=== PATIENT | female | born 1940 | race Caucasian/White ===

== ENCOUNTER → 2016-08-31 | Outpatient (CLI) | payer MEDICARE, MEDICAID ==
[2016-08-31 16:10] LABS: CALCIUM 8.7 MG/DL (8.5-10.1); CREATININE SERUM 1.21 MG/DL (0.60-1.30)
== END ==
LOC: HH 15:42
PROVIDERS: ATTEND Internal Medicine
DX: I12.9 Hypertensive chronic kidney disease with stage 1 through stage 4 chronic kidney disease, or unspecified chronic kidney disease (principal); N18.9 Chronic kidney disease, unspecified
CPT/HCPCS: 80048

== ENCOUNTER → 2016-09-27 | Outpatient (CLI) | payer MEDICARE, MEDICAID ==
[2016-09-27 15:48] LABS: CALCIUM 9.1 MG/DL (8.5-10.1); CREATININE SERUM 1.3 MG/DL (0.60-1.30); POTASSIUM 4.5 MMOL/L (3.6-5.0)
== END ==
LOC: HH 15:24
PROVIDERS: ATTEND Internal Medicine
DX: I12.9 Hypertensive chronic kidney disease with stage 1 through stage 4 chronic kidney disease, or unspecified chronic kidney disease (principal); N18.9 Chronic kidney disease, unspecified
CPT/HCPCS: 80048

== ENCOUNTER → 2016-10-27 | Outpatient (CLI) | payer MEDICARE, MEDICAID ==
--- OUTSIDE RECORDS SUMMARY | 2016-10-27 16:41 | XMS REPORT | Continuity of Care Document ---
Author Author [facility] Organization [facility] Address Unknown Phone Unavailable Allergies Medications Problems Date Dx Coded Attending Type Code Diagnosis Diagnosed By 08/03/2014 MARTHA MARQUEZ, DONAVAN Ford Ot 793.80 09/16/2014 Ot V76.12 09/16/2014 Ot 826.0 09/16/2014 Ot E000.8 09/16/2014 Ot E849.0 09/16/2014 Ot E928.9 09/16/2014 Ot V76.12 09/16/2014 Ot 782.3 09/16/2014 Ot 786.05 09/16/2014 Ot 715.36 09/16/2014 MARTHA MARQUEZ, DONAVAN Ford Ot V76.12 09/16/2014 MARTHA MARQUEZ, DONAVAN Ford Ot 793.80 10/06/2014 DONAVAN THOMAS MD Ot 793.80 10/13/2014 DONAVAN THOMAS MD Ot 793.80 02/04/2015 MARTHA MARQUEZ, DONAVAN Ford Ot 793.80 10/07/2015 MARTHA MARQUEZ, DONAVAN Ford Ot E11.9 10/25/2015 DONAVAN THOMAS MD Ot E11.9 11/04/2015 MARTHA MARQUEZ, DONAVAN Ford Ot E11.9 03/21/2016 MARTHA MARQUEZ, DONAVAN Ford Ot E11.9 TYPE 2 DIABETES MELLITUS WITHOUT COMPLIC 03/21/2016 MARTHA MARQUEZ, DONAVAN Ford Ot R60.9 EDEMA, UNSPECIFIED 03/21/2016 MARTHA MARQUEZ, DONAVAN Ford Ot Z79.899 OTHER SHELTER (CURRENT) DRUG THERAPY 04/11/2016 MARTHA MARQUEZ, DONAVAN Ford Ot R32 UNSPECIFIED URINARY INCONTINENCE 04/11/2016 DONAVAN THOMAS MD Ot E11.9 TYPE 2 DIABETES MELLITUS WITHOUT COMPLIC 04/11/2016 DONAVAN THOMAS MD Ot R60.9 EDEMA, UNSPECIFIED 04/11/2016 DONAVAN THOMAS MD Ot Z79.899 OTHER POULTRY TENDER (CURRENT) DRUG THERAPY 04/19/2016 DONAVAN THOMAS MD Ot E11.9 TYPE 2 DIABETES MELLITUS WITHOUT COMPLIC 04/19/2016 MARTHA MARQUEZ, DONAVAN Ford Ot Z79.899 OTHER POULTRY TENDER (CURRENT) DRUG THERAPY 04/19/2016 MARTHA MARQUEZ, DONAVAN Ford Ot E11.9 TYPE 2 DIABETES MELLITUS WITHOUT COMPLIC 04/19/2016 MARTHA MARQUEZ, DONAVAN Ford Ot R60.9 EDEMA, UNSPECIFIED 04/19/2016 MARTHA MARQUEZ, DONAVAN Ford Ot Z79.899 OTHER POULTRY TENDER (CURRENT) DRUG THERAPY 05/05/2016 MARTHA MARQUEZ, DONAVAN Ford Ot R32 UNSPECIFIED URINARY INCONTINENCE 05/11/2016 MARTHA MARQUEZ, DONAVAN Ford Ot R32 UNSPECIFIED URINARY INCONTINENCE 05/12/2016 MARTHA MARQUEZ, DONAVAN Ford Ot E11.9 TYPE 2 DIABETES MELLITUS WITHOUT COMPLIC 05/12/2016 MARTHA MARQUEZ, DONAVAN Ford Ot Z79.899 OTHER POULTRY TENDER (CURRENT) DRUG THERAPY 05/17/2016 MARTHA MARQUEZ, DONAVAN Ford Ot E11.9 TYPE 2 DIABETES MELLITUS WITHOUT COMPLIC 05/17/2016 MARTHA MARQUEZ, DONAVAN Ford Ot Z79.899 OTHER SHELTER (CURRENT) DRUG THERAPY 05/23/2016 DONAVAN THOMAS MD Ot N39.0 URINARY TRACT INFECTION, SITE NOT SPECIF 05/27/2016 DONAVAN THOMAS MD Ot E11.9 TYPE 2 DIABETES MELLITUS WITHOUT COMPLIC 05/27/2016 DONAVAN THOMAS MD Ot I10 ESSENTIAL (PRIMARY) HYPERTENSION 06/02/2016 DONAVAN THOMAS MD Ot N39.0 URINARY TRACT INFECTION, SITE NOT SPECIF 06/02/2016 DONAVAN THOMAS MD Ot E11.9 TYPE 2 DIABETES MELLITUS WITHOUT COMPLIC 06/02/2016 DONAVAN THOMAS MD Ot I10 ESSENTIAL (PRIMARY) HYPERTENSION 06/09/2016 DONAVAN THOMAS MD Ot E11.9 TYPE 2 DIABETES MELLITUS WITHOUT COMPLIC 06/09/2016 DONAVAN THOMAS MD Ot I10 ESSENTIAL (PRIMARY) HYPERTENSION 06/21/2016 DONAVAN THOMAS MD Ot E11.9 TYPE 2 DIABETES MELLITUS WITHOUT COMPLIC 06/21/2016 DONAVAN THOMAS MD Ot I10 ESSENTIAL (PRIMARY) HYPERTENSION 06/21/2016 DONAVAN THOMAS MD Ot N39.0 URINARY TRACT INFECTION, SITE NOT SPECIF 06/27/2016 DONAVAN THOMAS MD Ot E11.9 TYPE 2 DIABETES MELLITUS WITHOUT COMPLIC 06/27/2016 DONAVAN THOMAS MD Ot I10 ESSENTIAL (PRIMARY) HYPERTENSION 06/30/2016 DONAVAN THOMAS MD, Ot E11.29 TYPE 2 DIABETES MELLITUS W OT DIABETIC 07/05/2016 DONAVAN THOMAS MD Ot N39.0 URINARY TRACT INFECTION, SITE NOT SPECIF 07/05/2016 DONAVAN THOMAS MD, Ot E11.9 TYPE 2 DIABETES MELLITUS WITHOUT COMPLIC 07/05/2016 DONAVAN THOMAS MD, Ot I10 ESSENTIAL (PRIMARY) HYPERTENSION 07/10/2016 DONAVAN THOMAS MD, Ot E11.9 TYPE 2 DIABETES MELLITUS WITHOUT COMPLIC 07/10/2016 DONAVAN THOMAS MD, Ot I10 ESSENTIAL (PRIMARY) HYPERTENSION 07/19/2016 DONAVAN THOMAS MD, Ot E11.29 TYPE 2 DIABETES MELLITUS W OT DIABETIC 07/27/2016 DONAVAN THOMAS MD, Ot E11.29 TYPE 2 DIABETES MELLITUS W [facility] DIABETIC 07/31/2016 Ot 782.3 EDEMA 07/31/2016 Ot 786.05 SHORTNESS OF BREATH 07/31/2016 Ot 715.36 LOC OSTEOARTH NOS-L/LEG 07/31/2016 DONAVAN THOMAS MD Ot V76.12 OT SCREEN MAMMO-MALIGN NEOPLASM OF MARGARITA 07/31/2016 DONAVAN THOMAS MD Ot 793.80 UNSPEC ABNORMAL MAMMOGRAM 07/31/2016 DONAVAN THOMAS MD Ot 793.80 UNSPEC ABNORMAL MAMMOGRAM 07/31/2016 DONAVAN THOMAS MD, Ot E11.9 TYPE 2 DIABETES MELLITUS WITHOUT COMPLIC 07/31/2016 DONAVAN THOMAS MD, Ot E11.9 TYPE 2 DIABETES MELLITUS WITHOUT COMPLIC 07/31/2016 DONAVAN THOMAS MD Ot R60.9 EDEMA, UNSPECIFIED 07/31/2016 DONAVAN THOMAS MD, Ot Z79.899 OTHER SHELTER (CURRENT) DRUG THERAPY 07/31/2016 DONAVAN THOMAS MD, Ot R32 UNSPECIFIED URINARY INCONTINENCE 07/31/2016 DONAVAN THOMAS MD, Ot E11.9 TYPE 2 DIABETES MELLITUS WITHOUT COMPLIC 07/31/2016 DONAVAN THOMAS MD, Ot Z79.899 OTHER POULTRY TENDER (CURRENT) DRUG THERAPY 07/31/2016 DONAVAN THOMAS MD, Ot N39.0 URINARY TRACT INFECTION, SITE NOT SPECIF 07/31/2016 DONAVAN THOMAS MD, Ot E11.9 TYPE 2 DIABETES MELLITUS WITHOUT COMPLIC 07/31/2016 THOMAS MD, DONAVAN D Ot I10 ESSENTIAL (PRIMARY) HYPERTENSION 07/31/2016 MARTHA MARQUEZ, DONAVAN Ford Ot E11.9 TYPE 2 DIABETES MELLITUS WITHOUT COMPLIC 07/31/2016 MARTHA MARQUEZ, DONAVAN Ford Ot I10 ESSENTIAL (PRIMARY) HYPERTENSION 07/31/2016 MARTHA MARQUEZ, DONAVAN Ford Ot E11.29 TYPE 2 DIABETES MELLITUS W [facility] DIABETIC 08/01/2016 MARTHA MARQUEZ, DONAVAN Ford Ot E11.29 TYPE 2 DIABETES MELLITUS W [facility] DIABETIC 08/24/2016 MARTHA MARQUEZ, DONAVAN Ford Ot E11.29 TYPE 2 DIABETES MELLITUS W [facility] DIABETIC 08/31/2016 MARTHA MARQUEZ, DONAVAN Ford Ot E11.29 TYPE 2 DIABETES MELLITUS W [facility] DIABETIC 08/31/2016 MARTHA MARQUEZ, DONAVAN Ford Ot I12.9 HYPERTENSIVE CHRONIC KIDNEY DISEASE W ST 08/31/2016 MARTHA MARQUEZ, DONAVAN Ford Ot N18.9 CHRONIC KIDNEY DISEASE, UNSPECIFIED 09/21/2016 MARTHA MARQUEZ, DONAVAN Ford Ot I12.9 HYPERTENSIVE CHRONIC KIDNEY DISEASE W ST 09/21/2016 MARTHA MARQUEZ, DONAVAN Ford Ot N18.9 CHRONIC KIDNEY DISEASE, UNSPECIFIED 09/26/2016 MARTHA MARQUEZ, DONAVAN Ford Ot I12.9 HYPERTENSIVE CHRONIC KIDNEY DISEASE W ST 09/26/2016 MARTHA MARQUEZ, DONAVAN Ford Ot N18.9 CHRONIC KIDNEY DISEASE, UNSPECIFIED 09/29/2016 MARTHA MARQUEZ, DONAVAN Ford Ot I12.9 HYPERTENSIVE CHRONIC KIDNEY DISEASE W ST 09/29/2016 MARTHA MARQUEZ, DONAVAN Ford Ot N18.9 CHRONIC KIDNEY DISEASE, UNSPECIFIED Procedures Results Test Result Range Complete urinalysis with reflex to culture - 04/10/16 13:30 Urine color determination YELLOW NRG Urine clarity determination CLEAR NRG Urine pH measurement by test strip 5 5- 9 Specific gravity of urine by test strip 1.015 1.016-1.022 Urine protein assay by test strip, semi-quantitative 3+ NEGATIVE Urine glucose detection by automated test strip NEGATIVE NEGATIVE Erythrocytes detection in urine sediment by light microscopy 4+ NEGATIVE Urine ketones detection by automated test strip NEGATIVE NEGATIVE Urine nitrite detection by test strip NEGATIVE NEGATIVE Urine total bilirubin detection by test strip NEGATIVE NEGATIVE Urine urobilinogen measurement by automated test strip (mass/volume) NORMAL NORMAL Urine leukocyte esterase detection by dipstick 3+ NEGATIVE Automated urine sediment erythrocyte count by microscopy (number/high power field) [HPF] NRG Automated urine sediment leukocyte count by microscopy (number/high power field ) [HPF] NRG Bacteria detection in urine sediment by light microscopy MODERATE NRG Squamous epithelial cells detection in urine sediment by light microscopy 2-5 NRG Crystals detection in urine sediment by light microscopy NONE NRG Casts detection in urine sediment by light microscopy NONE NRG Mucus detection in urine sediment by light microscopy NEGATIVE NRG Complete urinalysis with reflex to culture YES NRG Bacterial urine culture - 04/10/16 13:30 Bacterial urine culture [id number] NRG COLONY COUNT >100,000/ML NRG FTX;REPORTABLE SENSITIVITY REPORTED 04/11 16:45 NRG URINE CULTURE RESULTS <10,000/ML NRG Bacterial susceptibility panel - 04/10/16 13:30 Gentamicin susceptibility test by minimum inhibitory concentration <= NRG Trimethoprim/sulfamethoxazole susceptibility test by minimum inhibitoryconcentration <= NRG Ampicillin susceptibility test by minimum inhibitory concentration >= NRG Tobramycin susceptibility test by minimum inhibitory concentration <= NRG Cefazolin susceptibility test by minimum inhibitory concentration <= NRG Ceftriaxone susceptibility test by minimum inhibitory concentration <= NRG Ampicillin/sulbactam susceptibility test by minimum inhibitory concentration >= NRG Piperacillin/tazobactam susceptibility test by minimum inhibitory concentration <= NRG Ciprofloxacin susceptibility test by minimum inhibitory concentration <= NRG Meropenem susceptibility test by minimum inhibitory concentration <= NRG Nitrofurantoin susceptibility test by minimum inhibitory concentration <= NRG Aztreonam susceptibility test by minimum inhibitory concentration <= NRG Extended spectrum beta lactamase (ESBL) producing bacteria susceptibility test by minimum inhibitory concentration - NR Whole blood basic metabolic panel - 04/18/16 12:15 Serum or plasma sodium measurement (moles/volume) 137 mmol/ L 135-145 Serum or plasma potassium measurement (moles/volume) 4.2 mmol/L 3.6-5.0 Serum or plasma chloride measurement (moles/volume) 100 mmol /L 98-107 Carbon dioxide 27 mmol/L 21-32 Serum or plasma anion gap determination (moles/volume) 10 mmol/L 5-14 Serum or plasma urea nitrogen measurement (mass/volume) 30 mg/dL 7-18 Serum or plasma creatinine measurement (mass/volume) 1.19 mg /dL 0.60-1.30 Serum or plasma urea nitrogen/creatinine mass ratio 25 NRG Serum or plasma creatinine measurement with calculation of estimated glomerular filtration rate 44 NRG Serum or plasma glucose measurement (mass/volume) 274 mg/dL 70-105 Serum or plasma calcium measurement (mass/volume) 9.1 mg/dL 8.5-10.1 Complete urinalysis with reflex to culture - 05/16/16 16:15 Urine color determination YELLOW NRG Urine clarity determination VERY CLOUDY NRG Urine pH measurement by test strip 7 5- 9 Specific gravity of urine by test strip 1.010 1.016-1.022 Urine protein assay by test strip, semi-quantitative 1+ NEGATIVE Urine glucose detection by automated test strip NEGATIVE NEGATIVE Erythrocytes detection in urine sediment by light microscopy 4+ NEGATIVE Urine ketones detection by automated test strip NEGATIVE NEGATIVE Urine nitrite detection by test strip POSITIVE NEGATIVE Urine total bilirubin detection by test strip NEGATIVE NEGATIVE Urine urobilinogen measurement by automated test strip (mass/volume) NORMAL NORMAL Urine leukocyte esterase detection by dipstick 3+ NEGATIVE Automated urine sediment erythrocyte count by microscopy (number/high power field) [HPF] NRG Automated urine sediment leukocyte count by microscopy (number/high power field ) [HPF] NRG Bacteria detection in urine sediment by light microscopy FEW NRG Squamous epithelial cells detection in urine sediment by light microscopy NONE NRG Crystals detection in urine sediment by light microscopy NONE NRG Casts detection in urine sediment by light microscopy NONE NRG Mucus detection in urine sediment by light microscopy NEGATIVE NRG Complete urinalysis with reflex to culture YES NRG Bacterial urine culture - 05/16/16 16:15 Bacterial urine culture [id number] NRG COLONY COUNT 10,000/ML - 100,000/ML NRG FTX;REPORTABLE SENSITIVITY [place]PORTED [place] 0819, 16 NR URINE CULTURE RESULTS PLUS NR Bacterial susceptibility panel - 05/16/16 16:15 Gentamicin susceptibility test by minimum inhibitory concentration <= NRG Trimethoprim/sulfamethoxazole susceptibility test by minimum inhibitoryconcentration <= NRG Ampicillin susceptibility test by minimum inhibitory concentration >= NRG Tobramycin susceptibility test by minimum inhibitory concentration <= NRG Cefazolin susceptibility test by minimum inhibitory concentration <= NRG Ceftriaxone susceptibility test by minimum inhibitory concentration <= NRG Ampicillin/sulbactam susceptibility test by minimum inhibitory concentration >= NRG Piperacillin/tazobactam susceptibility test by minimum inhibitory concentration <= NRG Ciprofloxacin susceptibility test by minimum inhibitory concentration <= NRG Meropenem susceptibility test by minimum inhibitory concentration <= NRG Nitrofurantoin susceptibility test by minimum inhibitory concentration 64 NRG Aztreonam susceptibility test by minimum inhibitory concentration <= NRG Extended spectrum beta lactamase (ESBL) producing bacteria susceptibility test by minimum inhibitory concentration NEG NRG Bacterial susceptibility panel - 05/16/16 16:15 Gentamicin susceptibility test by minimum inhibitory concentration <= NRG Trimethoprim/sulfamethoxazole susceptibility test by minimum inhibitoryconcentration <= NRG Tobramycin susceptibility test by minimum inhibitory concentration <= NRG Cefazolin susceptibility test by minimum inhibitory concentration >= NRG Piperacillin/tazobactam susceptibility test by minimum inhibitory concentration <= NRG Ciprofloxacin susceptibility test by minimum inhibitory concentration <= NRG Meropenem susceptibility test by minimum inhibitory concentration <= NRG Nitrofurantoin susceptibility test by minimum inhibitory concentration 128 NRG Aztreonam susceptibility test by minimum inhibitory concentration <= NRG Cefepime susceptibility test by minimum inhibitory concentration <= NRG Bacterial susceptibility panel - 05/16/16 16:15 Gentamicin susceptibility test by minimum inhibitory concentration S NRG Vancomycin susceptibility test by minimum inhibitory concentration 1 NRG Levofloxacin susceptibility test by minimum inhibitory concentration 1 NRG Tetracycline susceptibility test by minimum inhibitory concentration <= NRG Ampicillin susceptibility test by minimum inhibitory concentration <= NRG Nitrofurantoin susceptibility test by minimum inhibitory concentration <= NRG Linezolid susceptibility test by minimum inhibitory concentration 2 NRG Complete blood count (CBC) with automated white blood cell (WBC) differential - 05/23/16 13:30 Blood leukocytes automated count (number/volume) 6.5 10*3/ uL 4.3-11.0 Blood erythrocytes automated count (number/volume) 4.16 10*6 /uL 4.35-5.85 Venous blood hemoglobin measurement (mass/volume) 12.5 g/dL 11.5-16.0 Blood hematocrit (volume fraction) 38 % 35-52 Automated erythrocyte mean corpuscular volume 91 [foz_us] 80-99 Automated erythrocyte mean corpuscular hemoglobin (mass per erythrocyte) 30 pg 25-34 Automated erythrocyte mean corpuscular hemoglobin concentration measurement ( mass/volume) 33 g/dL 32-36 Automated erythrocyte distribution width ratio 12.8 % 10.0-14.5 Automated blood platelet count (count/volume) 166 10*3/uL 130-400 Automated blood platelet mean volume measurement 11.7 [foz_ us] 7.4-10.4 Automated blood neutrophils/100 leukocytes 55 % 42-75 Automated blood lymphocytes/100 leukocytes 28 % 12-44 Blood monocytes/100 leukocytes 10 % 0-12 Automated blood eosinophils/100 leukocytes 6 % 0-10 Automated blood basophils/100 leukocytes 1 % 0-10 Blood neutrophils automated count (number/volume) 3.6 10*3 1.8-7.8 Blood lymphocytes automated count (number/volume) 1.8 10*3 1.0-4.0 Blood monocytes automated count (number/volume) 0.7 10*3 0.0-1.0 Automated eosinophil count 0.4 10*3/uL 0.0-0.3 Automated blood basophil count (count/volume) 0.1 10*3/uL 0.0-0.1 Whole blood basic metabolic panel - 05/23/16 13:30 Serum or plasma sodium measurement (moles/volume) 128 mmol/ L 135-145 Serum or plasma potassium measurement (moles/volume) 4.7 mmol/L 3.6-5.0 Serum or plasma chloride measurement (moles/volume) 97 mmol/ L 98-107 Carbon dioxide 21 mmol/L 21-32 Serum or plasma anion gap determination (moles/volume) 10 mmol/L 5-14 Serum or plasma urea nitrogen measurement (mass/volume) 28 mg/dL 7-18 Serum or plasma creatinine measurement (mass/volume) 2.06 mg /dL 0.60-1.30 Serum or plasma urea nitrogen/creatinine mass ratio 14 NRG Serum or plasma creatinine measurement with calculation of estimated glomerular filtration rate 24 NRG Serum or plasma glucose measurement (mass/volume) 240 mg/dL 70-105 Serum or plasma calcium measurement (mass/volume) 8.7 mg/dL 8.5-10.1 Whole blood basic metabolic panel - 05/31/16 16:00 Serum or plasma sodium measurement (moles/volume) 136 mmol/ L 135-145 Serum or plasma potassium measurement (moles/volume) 4.7 mmol/L 3.6-5.0 Serum or plasma chloride measurement (moles/volume) 102 mmol /L 98-107 Carbon dioxide 22 mmol/L 21-32 Serum or plasma anion gap determination (moles/volume) 12 mmol/L 5-14 Serum or plasma urea nitrogen measurement (mass/volume) 23 mg/dL 7-18 Serum or plasma creatinine measurement (mass/volume) 1.23 mg /dL 0.60-1.30 Serum or plasma urea nitrogen/creatinine mass ratio 19 NRG Serum or plasma creatinine measurement with calculation of estimated glomerular filtration rate 43 NRG Serum or plasma glucose measurement (mass/volume) 373 mg/dL 70-105 Serum or plasma calcium measurement (mass/volume) 8.5 mg/dL 8.5-10.1 Whole blood basic metabolic panel - 06/29/16 14:30 Serum or plasma sodium measurement (moles/volume) 139 mmol/ L 135-145 Serum or plasma potassium measurement (moles/volume) 4.0 mmol/L 3.6-5.0 Serum or plasma chloride measurement (moles/volume) 103 mmol /L 98-107 Carbon dioxide 31 mmol/L 21-32 Serum or plasma anion gap determination (moles/volume) 5 mmol/L 5-14 Serum or plasma urea nitrogen measurement (mass/volume) 22 mg/dL 7-18 Serum or plasma creatinine measurement (mass/volume) 1.18 mg /dL 0.60-1.30 Serum or plasma urea nitrogen/creatinine mass ratio 19 NRG Serum or plasma creatinine measurement with calculation of estimated glomerular filtration rate 45 NRG Serum or plasma glucose measurement (mass/volume) 95 mg/dL 70-105 Serum or plasma calcium measurement (mass/volume) 8.7 mg/dL 8.5-10.1 Hemoglobin A1c - 07/31/16 18:00 Hemoglobin A1c 5.8 % 4.5-6.2 Whole blood basic metabolic panel - 07/31/16 18:00 Serum or plasma sodium measurement (moles/volume) 139 mmol/ L 135-145 Serum or plasma potassium measurement (moles/volume) 4.1 mmol/L 3.6-5.0 Serum or plasma chloride measurement (moles/volume) 103 mmol /L 98-107 Carbon dioxide 26 mmol/L 21-32 Serum or plasma anion gap determination (moles/volume) 10 mmol/L 5-14 Serum or plasma urea nitrogen measurement (mass/volume) 21 mg/dL 7-18 Serum or plasma creatinine measurement (mass/volume) 1.15 mg /dL 0.60-1.30 Serum or plasma urea nitrogen/creatinine mass ratio 18 NRG Serum or plasma creatinine measurement with calculation of estimated glomerular filtration rate 46 NRG Serum or plasma glucose measurement (mass/volume) 82 mg/dL 70-105 Serum or plasma calcium measurement (mass/volume) 8.8 mg/dL 8.5-10.1 Whole blood basic metabolic panel - 08/31/16 15:30 Serum or plasma sodium measurement (moles/volume) 136 mmol/ L 135-145 Serum or plasma potassium measurement (moles/volume) 4.0 mmol/L 3.6-5.0 Serum or plasma chloride measurement (moles/volume) 99 mmol/ L 98-107 Carbon dioxide 27 mmol/L 21-32 Serum or plasma anion gap determination (moles/volume) 10 mmol/L 5-14 Serum or plasma urea nitrogen measurement (mass/volume) 28 mg/dL 7-18 Serum or plasma creatinine measurement (mass/volume) 1.21 mg /dL 0.60-1.30 Serum or plasma urea nitrogen/creatinine mass ratio 23 NRG Serum or plasma creatinine measurement with calculation of estimated glomerular filtration rate 44 NRG Serum or plasma glucose measurement (mass/volume) 134 mg/dL 70-105 Serum or plasma calcium measurement (mass/volume) 8.7 mg/dL 8.5-10.1 Whole blood basic metabolic panel - 09/27/16 15:00 Serum or plasma sodium measurement (moles/volume) 139 mmol/ L 135-145 Serum or plasma potassium measurement (moles/volume) 4.5 mmol/L 3.6-5.0 Serum or plasma chloride measurement (moles/volume) 101 mmol /L 98-107 Carbon dioxide 28 mmol/L 21-32 Serum or plasma anion gap determination (moles/volume) 10 mmol/L 5-14 Serum or plasma urea nitrogen measurement (mass/volume) 28 mg/dL 7-18 Serum or plasma creatinine measurement (mass/volume) 1.30 mg /dL 0.60-1.30 Serum or plasma urea nitrogen/creatinine mass ratio 22 NRG Serum or plasma creatinine measurement with calculation of estimated glomerular filtration rate 40 NRG Serum or plasma glucose measurement (mass/volume) 153 mg/dL 70-105 Serum or plasma calcium measurement (mass/volume) 9.1 mg/dL 8.5-10.1 Encounters ACCT No. Visit Date/Time Discharge Status Pt. Type Provider Facility Loc./Unit Complaint [id number] 09/16/2014 14:01:00 2014 23:59:59 CLS Outpatient MARTHA MARQUEZ, DONAVAN Ford [facility] RAD SIX MONTH F/U [id number] 02/18/2014 14:47:00 2013 23:59:59 CLS Outpatient DONAVAN THOMAS MD [facility] RAD ABNORMAL MAMMO [id number] 01/29/2014 13:08:00 2013 23:59:59 CLS Outpatient DONAVAN THOMAS MD [facility] RAD SCREENING [id number] 09/27/2016 15:24:00 ACT Outpatient DONAVAN THOMAS MD [facility] HTN, CKD W/STG 1-4 UNSP CKD [id number] 08/31/2016 15:42:00 ACT Outpatient DONAVAN THOMAS MD [facility] HTN, CKD STG 1-4 UNSP CHRONIC KIDNEY DISEASE [id number] 07/31/2016 22:48:00 ACT Outpatient DONAVAN THOMAS MD [facility] 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 [id number] 06/29/2016 14:47:00 ACT Outpatient DONAVAN THOMAS MD [facility] DM TYPE II W/ OTHER DIABETIC KIDNEY COMPLICATIONS [id number] 05/31/2016 16:00:00 ACT Outpatient DONAAVN THOMAS MD [facility] E11.9,I10 [id number] 05/23/2016 13:55:00 ACT Outpatient DONAVAN THOMAS MD [facility] DM TYPE 2, HTN [id number] 05/16/2016 16:15:00 ACT Outpatient DONAVAN THOMAS MD [facility] UTI [id number] 04/18/2016 12:31:00 ACT Outpatient DONAVAN THOMAS MD [facility] DIURETIC THERAPY, DIABETES [id number] 04/10/2016 14:34:00 ACT Outpatient DONAVAN THOMAS MD [facility] POSSIBLE UTI, INCONTINENCE [id number] 03/20/2016 14:39:00 ACT Outpatient DONAVAN THOMAS MD [facility] DIABETES, DIURETIC THERAPY, MASSIVE EMBOLISM [id number] 09/29/2015 10:47:00 ACT Outpatient DONAVAN THOMAS MD [facility] [id number] 11/03/2011 10:16:00 Document Registration [id number] 03/31/2011 11:47:00 Document Registration [id number] 07/18/2010 10:43:00 Document Registration [id number] 05/30/2010 12:09:00 Document Registration [id number] 06/03/2009 14:44:00 Document Registration
[2016-10-27 16:58] LABS: CALCIUM 8.6 MG/DL (8.5-10.1); CREATININE SERUM 1.29 MG/DL (0.60-1.30); POTASSIUM 4.2 MMOL/L (3.6-5.0)
== END ==
LOC: HH 16:36
PROVIDERS: ATTEND Internal Medicine
DX: E11.9 Type 2 diabetes mellitus without complications (principal)
CPT/HCPCS: 80048

== ENCOUNTER → 2016-12-07 | Outpatient (CLI) | payer MEDICARE, MEDICAID ==
[2016-12-07 17:35] LABS: CALCIUM 8.6 MG/DL (8.5-10.1); CREATININE SERUM 1.24 MG/DL (0.60-1.30)
== END ==
LOC: HH 17:10
PROVIDERS: ATTEND Internal Medicine
DX: E11.9 Type 2 diabetes mellitus without complications (principal)
CPT/HCPCS: 80048

== ENCOUNTER → 2017-01-18 | Outpatient (CLI) | payer MEDICARE, MEDICAID ==
[2017-01-18 15:41] LABS: CALCIUM 8.7 MG/DL (8.5-10.1); CREATININE SERUM 1.22 MG/DL (0.60-1.30); POTASSIUM 4.3 MMOL/L (3.6-5.0)
== END ==
LOC: HH 15:11
PROVIDERS: ATTEND Internal Medicine
DX: I50.9 Heart failure, unspecified (principal); E87.6 Hypokalemia
CPT/HCPCS: 80048

== ENCOUNTER → 2017-02-16 | Outpatient (CLI) | payer MEDICARE, MEDICAID ==
[2017-02-16 16:12] LABS: CALCIUM 8.5 MG/DL (8.5-10.1); CREATININE SERUM 1.5 MG/DL (0.60-1.30); ICTERUS 0.4 (-100-1.9); POTASSIUM 4.9 MMOL/L (3.6-5.0)
== END ==
LOC: HH 15:05
PROVIDERS: ATTEND Internal Medicine
DX: E11.9 Type 2 diabetes mellitus without complications (principal)
CPT/HCPCS: 80048; 83036

== ENCOUNTER → 2017-03-14 | Outpatient (CLI) | payer MEDICARE, MEDICAID ==
[2017-03-14 15:23] LABS: CALCIUM 8.8 MG/DL (8.5-10.1); CREATININE SERUM 1.86 MG/DL (0.60-1.30); POTASSIUM 4.8 MMOL/L (3.6-5.0)
== END ==
LOC: HH 15:03
PROVIDERS: ATTEND Internal Medicine
DX: E11.9 Type 2 diabetes mellitus without complications (principal); I50.9 Heart failure, unspecified
CPT/HCPCS: 80048

== ENCOUNTER → 2017-04-16 | Outpatient (CLI) | payer MEDICARE, MEDICAID ==
[2017-04-16 18:07] LABS: CREATININE SERUM 1.44 MG/DL (0.60-1.30)
== END ==
LOC: HH 17:37
PROVIDERS: ATTEND Internal Medicine
DX: E11.22 Type 2 diabetes mellitus with diabetic chronic kidney disease (principal); I10 Essential (primary) hypertension
CPT/HCPCS: 80048

== ENCOUNTER → 2017-04-24 | Outpatient (CLI) | payer MEDICARE, MEDICAID ==
[2017-04-24 14:19] LABS: CALCIUM 8.8 MG/DL (8.5-10.1); CREATININE SERUM 1.29 MG/DL (0.60-1.30); POTASSIUM 4.3 MMOL/L (3.6-5.0)
== END ==
LOC: HH 13:45
PROVIDERS: ATTEND Internal Medicine
DX: E11.22 Type 2 diabetes mellitus with diabetic chronic kidney disease (principal); E87.1 Hypo-osmolality and hyponatremia; E11.39 Type 2 diabetes mellitus with other diabetic ophthalmic complication
CPT/HCPCS: 80048

== ENCOUNTER → 2017-05-22 | Outpatient (CLI) | payer MEDICARE, MEDICAID ==
[2017-05-22 16:48] LABS: CALCIUM 8.4 MG/DL (8.5-10.1); CREATININE SERUM 1.31 MG/DL (0.60-1.30); POTASSIUM 3.3 MMOL/L (3.6-5.0)
== END ==
LOC: HH 16:25
PROVIDERS: ATTEND Internal Medicine
DX: I50.9 Heart failure, unspecified (principal); E87.6 Hypokalemia; Z79.899 Other long term (current) drug therapy
CPT/HCPCS: 80048

== ENCOUNTER → 2017-06-01 | Outpatient (CLI) | payer MEDICARE, MEDICAID ==
[2017-06-01 10:55] LABS: CALCIUM 8.6 MG/DL (8.5-10.1); CREATININE SERUM 1.36 MG/DL (0.60-1.30)
== END ==
LOC: HH 05-31 15:18
PROVIDERS: ATTEND Internal Medicine
DX: E87.1 Hypo-osmolality and hyponatremia (principal)
CPT/HCPCS: 80048

== ENCOUNTER → 2017-06-11 | Outpatient (CLI) | payer MEDICARE, MEDICAID ==
[2017-06-11 18:06] LABS: CALCIUM 8.9 MG/DL (8.5-10.1); CREATININE SERUM 1.3 MG/DL (0.60-1.30); POTASSIUM 3.7 MMOL/L (3.6-5.0)
== END ==
LOC: HH 17:41
PROVIDERS: ATTEND Internal Medicine
DX: E87.1 Hypo-osmolality and hyponatremia (principal); Z79.899 Other long term (current) drug therapy
CPT/HCPCS: 80048